=== PATIENT | male | born 1980 | race Caucasian/White ===

== ENCOUNTER → 2016-11-21 | Outpatient (CLI) | payer OTHER ==
[2016-11-21 11:18] LABS: BASOPHILS # (AUTO) 0.04 10*3/UL; BASOPHILS % (AUTO) 0.7 % (0-1); EOSINOPHILS % (AUTO) 1.7 % (0-8); HEMATOCRIT 37.7 % (42.0-52.0); HEMOGLOBIN 13.6 g/dL (14.0-18.0); IMM GRAN % (AUTO) 0.2 % (0-5); IMM GRAN# (AUTO) 0.01 10*3/UL; LYMPHOCYTES % (AUTO) 25.7 % (10-50); MEAN CORPUSCULAR HEMOGLOBIN 29.7 PG (27-31); MEAN CORPUSCULAR HGB CONC 36.1 g/dL (33-37); MEAN PLATELET VOLUME 9.7 FL (7.4-12.2); MONOCYTES # (AUTO) 0.52 10*3/UL (0.3-0.8); MONOCYTES % (AUTO) 9.6 % (5-15); NEUTROPHILS # (AUTO) 3.38 10*3/UL; NEUTROPHILS % (AUTO) 62.1 % (50-80); RDW COEFFICIENT OF VARIATION 12.5 % (11.5-14.5); RED BLOOD COUNT 4.58 10^6/uL (4.70-6.10); WHITE BLOOD COUNT 5.44 10^3/uL (4.8-10.8)
[2016-11-21 11:32] LABS: C-REACTIVE PROTEIN 0.6 mg/dL (0.0-0.9); URIC ACID 8.3 mg/dl (3.8-8.5)
[2016-11-21 11:40] LABS: PLATELET MORPHOLOGY COMMENT NORMAL MORPHOLOGY (NORM)
[2016-11-22 15:01] LABS: RHEUMATOID FACTOR <15 IU/mL (<15)
[2016-11-23 09:19] LABS: CYCLIC CITRULLINATED PEPTIDEAB <15.6 U (())
== END ==
LOC: LAB 10:55
PROVIDERS: ATTEND Orthopaedic Surgery
DX: M25.551 Pain in right hip (principal); M25.561 Pain in right knee; M25.461 Effusion, right knee; W17.89XA Other fall from one level to another, initial encounter; Z82.61 Family history of arthritis
CPT/HCPCS: 36415; 84550; 85025; 85652; 86038; 86140; 86200; 86431

== ENCOUNTER → 2016-11-21 | Outpatient (CLI) | payer OTHER ==
--- NOTE | 2016-11-21 13:25 | DI ---
History: Right hip pain. Three-view study. Phleboliths noted in the pelvis and in the right area of the spermatic cord, possibly in the pampinif orm plexus Good acetabular coverage bilaterally. No loss of joint space. Femoral head free of any focal abnormal ities. Pelvic ring intact. Impression: Phleboliths as mentioned above. Both hips are unremarkable on this study
== END ==
LOC: ORTHO 10:39
PROVIDERS: ATTEND Physician Assistant
DX: M25.551 Pain in right hip (principal); M25.461 Effusion, right knee
CPT/HCPCS: 73502

== ENCOUNTER 2016-12-17 09:13 | Day surgery (SDC) | payer OTHER ==
[~2016-12-17 09:13] MED LIST: Clindamycin 900mg (Premix) 50 ML IV ONE; LIDOCAINE W/ SODIUM BICARB 0.5 ML SYR ONE; Lactated Ringers 1,000 ML PRIMARY IV ONE
[2016-12-17] MEDS ORDERED: LIDOCAINE MPF 2% - 5 ML (20 MG/1 ML) ONE (10:12)
[2016-12-17] MEDS ORDERED: MIDAZOLAM 5 MG/1 ML ONE (10:12)
[2016-12-17] MEDS ORDERED: fentaNYL Inj 250 MCG/5 ML VIAL ONE (10:12)
[2016-12-17] MEDS ORDERED: EPINEPHrine Inj (1:1,000) 30mg/30ml vial ONE (10:37)
[2016-12-17] MEDS ORDERED: Ropivacaine 0.2% VIAL 20 ML ONE (10:37)
[2016-12-17] MEDS ORDERED: ONDANSETRON 4 MG/2 ML VIAL ONE (10:59)
[2016-12-17] MEDS ORDERED: KETOROLAC 30 MG/1 ML VIAL ONE (10:59)
[2016-12-17] MEDS ORDERED: HYDROmorphone 2 MG/1 ML ONE (10:59)
[2016-12-17] MEDS ORDERED: Lactated Ringers 1,000 ML PRIMARY IV ONE (11:33)
[2016-12-17] MEDS ORDERED: BETAMET ACET/BETAMET NA PH 6 MG/1 ML - 5 ML ONE (11:49)
[2016-12-17] MEDS ORDERED: Nalbuphine Inj 20 MG/ML Ampule ONE (12:20)
[2016-12-17] MEDS ORDERED: NORMAL SALINE 10 ML SYRINGE FLUSH IVP PRN (12:21)
[2016-12-17] MEDS ORDERED: ONDANSETRON 4 MG/2 ML VIAL IVP PRN (12:21)
[2016-12-17] MEDS ORDERED: MORPHINE SULFATE 2 MG/1 ML IVP PRN (12:21)
[2016-12-17] MEDS ORDERED: HYDROcodone-APAP 7.5 MG-325 MG TABLET PO PRN (12:21)
[2016-12-17] MEDS ORDERED: Lactated Ringers 1,000 ML PRIMARY IV SCH (12:30)
[2016-12-17] MEDS ORDERED: HYDROcodone-APAP 7.5 MG-325 MG TABLET PO ONE (12:31)
[2016-12-17] MEDS ORDERED: Nalbuphine Inj 20 MG/ML Ampule IVP PRN (13:13)
[2016-12-17 14:11] VITALS: RESP 15
[2016-12-17 14:32] VITALS: TEMP 97
--- NOTE | 2016-12-17 16:26 | OPS CRUTCH ---
Diagnosis : Right Knee Debridement Referral Reason: Knee Cryo Cuff O: The patient was issued a Cryo-Cuff and instructed in its proper use and care. P: No further therapy is indicated at this time. MTDD
== END 2016-12-17 13:54 | disposition home or self-care (01) ==
LOC: SDSC 09:13
PROVIDERS: ATTEND Orthopaedic Surgery
DX: M24.561 Contracture, right knee (principal); M10.061 Idiopathic gout, right knee; M65.9 Synovitis and tenosynovitis, unspecified
CPT/HCPCS: 29876; 29881; J0171; J0702; J1885; J2300; J2704; J2795; J3010; J1170; J2001; J2250; J2405; J3490; J7120

== ENCOUNTER → 2017-03-05 | Outpatient (CLI) | payer OTHER ==
[2017-03-05 12:26] LABS: HEMATOCRIT 40.8 % (42.0-52.0); HEMOGLOBIN 14.4 g/dL (14.0-18.0); MEAN CORPUSCULAR HGB CONC 35.3 g/dL (33-37); MEAN CORPUSCULAR VOLUME 82.3 FL (80-90); MEAN PLATELET VOLUME 9.5 FL (7.4-12.2); RED BLOOD COUNT 4.96 10^6/uL (4.70-6.10)
[2017-03-05 13:11] LABS: BAND NEUTROPHILS % 0 % (0-10); BASOPHILS % (MANUAL) 0 % (0-1); EOSINOPHILS % (MANUAL) 2 % (0-8); LYMPHOCYTES % (MANUAL) 28 % (10-50); MONOCYTES % (MANUAL) 8 % (0-12); NEUTROPHILS % (MANUAL) 62 % (50-80); PLATELET MORPHOLOGY COMMENT NORMAL MORPHOLOGY (NORM); RBC MORPHOLOGY COMMENT NORMAL MORPHOLOGY (NORM); WBC MORPHOLOGY COMMENT NORMAL MORPHOLOGY (NORM)
== END ==
LOC: LAB 12:10
PROVIDERS: ATTEND Family Medicine
DX: D64.9 Anemia, unspecified (principal); M10.9 Gout, unspecified; E55.9 Vitamin D deficiency, unspecified
CPT/HCPCS: 36415; 82306; 84550; 85007